=== PATIENT | male | born 1950 | race Caucasian/White ===

== ENCOUNTER 2018-01-23 09:15 | Inpatient (IN) | payer MEDICARE, OTHER ==
[~2018-01-23] VITALS: Ht 175.3 cm; Wt 120.3 kg
[~2018-01-23 09:15] MED LIST: ASPIRIN EC81 MG PO; CARDURA4 MG PO; CARVEDILOL25 MG PO; COREG12.5 MG PO; COREG6.25 MG PO; COUMADIN1 MG PO; COUMADIN10 MG PO; COUMADIN2 MG PO; COUMADIN7.5 MG PO; DIGITEK250 MCG PO; DIGOXIN PO; DIOVAN PO; DRISDOL50000 UNIT PO; GLIPIZIDE XL10 MG PO; GLUCOPHAGE1000 MG PO; JANUMET 50-1,01 EACH PO; JANUVIA100 MG PO; JANUVIA50 MG PO; KLOR-CON M2020 MEQ PO; LANOXIN125 MCG PO; LANTUS100 UNITS/ SUB-Q; LASIX80 MG PO; LIPITOR10 MG PO; METOLAZONE2.5 MG PO; METOPROLOL SUCC25 MG PO; NORVASC5 MG PO; REVLIMID10 MG PO; TOPROL XL100 MG PO; TRADJENTA5 MG PO; VITAMIN D250000 UNIT IM; VITAMIN D250000 UNIT PO; WARFARIN SODIUM10 MG PO; ZESTRIL40 MG PO; ZYLOPRIM100 MG PO
--- NOTE | 2018-01-23 12:30 | NUR ---
PT RECEIVED FROM ED. PT 1PA TRANSFER TO BED. PT WITH DECUB ULCERS TO BILATERAL FFET AND LEGS, PICTURES IN CHART. PT ON ROOM AIR, LUNG SOUNDS CLEAR, DENIES SOB. PT ON ADA DIET, BLOOD GLUCOSE 159, ASSISTED WITH ORDERING LUNCH. IV FLUIDS INFUSING NS AT 125 ML/HR. PT BOWEL TONES ACTIVE, DENIES NAUSEA. PT WITH STAGE 2 DECUBITUS ON SACRUM, PICTURE IN CHART. ADMISSION INTAKE COMPLETED. PT DENIES OTHER NEEDS AT THIS TIME.
[2018-01-23] MEDS ORDERED: ULORIC80 MG PO (13:47)
[2018-01-23] MEDS ORDERED: DILT-XR120 MG PO (13:48)
[2018-01-23] MEDS ORDERED: GLIPIZIDE10 MG PO (13:48)
--- NOTE | 2018-01-23 14:22 | NUR ---
Medications reconciled using pharmacy records, recent patient interview
--- NOTE | 2018-01-23 14:36 | NUR ---
CHECKED IN ON PT SEVERAL TIMES-ASLEEP EACH TIME. DID NOT WANT TO DISTURB. I WILL FOLLOW UP LATER.
--- NOTE | 2018-01-23 15:14 | NUR ---
THIS MAIL OPENER OFFERED PATIENT A SHOWER OR BEDBATH, PATIENT REFUSED. CALL LIGHT INR EACH
--- NOTE | 2018-01-23 16:20 | NUR ---
PT RESTING IN BED. PT ON ROOM AIR, LUNG SOUNDS CLEAR. URINE OUTPUT AND COLOR IMPROVING. PT DENIES NAUSEA, BOWEL TONES ACTIVE. IV FLUIDS CONTINUE TO INFUSE AT 125 ML/HR. NO ACUTE CHANGES. PT DENIES OTHER NEEDS AT THIS TIME.
--- NOTE | 2018-01-23 17:58 | NUR ---
PT ADMITTED THIS AFTERNOON FOR CONCEPCION/DEHYDRATION. PT ON ROOM AIR, LUNG SOUNDS CLEAR. PT ON ADA DIET, ACCUCHECKS, TOLERATING WELL. PT WITH WOUNDS TO BLE, PAINFUL TO TOUCH AND AMBULATE, WOUND CARE CONSULTED AND WILL ROUND ON PT TOMORROW. PT UP WITH 1PA WITH CANE, RECOMMEND BSC. PT VOIDING IN URINAL, QS, COLOR IMPROVING. IV FLUIDS INFUSING NS AT 125 ML/HR.
--- NOTE | 2018-01-23 18:15 | NUR ---
PATIENT WATCHING TV IN BED. VITALS AND I/OS CHARTED. WARM BLANKET GIVENCALL LIGHT IN REACH. NO OTHER NEEDS.
--- NOTE | 2018-01-23 20:46 | NUR ---
COOP WITH ASSESSMENT, BOTH FEET ELEVATED, SCANT AMOUNTS OF SEROSANGUINEOUS DRAINAGE
--- NOTE | 2018-01-23 21:12 | EKG ---
[facility] [address] [facility] [place] [address] Signed Atrial fibrillation with rapid ventricular response Left axis deviation Left ventricular hypertrophy with QRS widening Abnormal ECG When compared with ECG of 22-NOV-2016 10:08, QRS duration has increased Inverted T waves have replaced nonspecific T wave abnormality in Lateral leads Confirmed by DELMAR HAND MD ([id number]) on 01/23/2018 9:11:48 PM Electronically Signed By: DELMAR HAND MD 01/23/182111 PATIENT NAME: ZACH SMART Electrocardiogram DATE OF : 50 PHYSICIAN: DELMAR HAND MD REPORT #: [id number] REPORT IS CONFIDENTIAL AND NOT TO BE RELEASED WITHOUT AUTHORIZATION
--- NOTE | 2018-01-24 00:34 | NUR ---
PER PT REQUEST I GOT HIM A WARM BLANKET.
--- NOTE | 2018-01-24 03:25 | NUR ---
DR HAND NOTIFIED OF PT HAVING A RUN OF FAST VTACH, NEW ORDERS TO CHANGE 0600 AM LABS TO NOW AND ADD MG LEVEL, PT ASYMPTOMATIC.
--- NOTE | 2018-01-24 03:47 | NUR ---
VITALS DONE AND CHARTED. BEDSIDE TABLE AND CALL LIGHT WITHIN REACH.PT NEEDS NOTHING ELSE AT THIS TIME .
--- NOTE | 2018-01-24 05:16 | NUR ---
PT CONTINUES ON OBSERVATION STATUS. IVF INSUSING W/O PROBLEMS. TELE#5 INPLACE, HAD A RUN OF FAST V TACH, DR ESPITIA NOTIFIED, LABS DRAWN. CALLED WITH RESULTS. PT HAS ALLEVYN DRESSING IN BUTTOCKS. OPEN AREAS IN FEET WITH SCANT AMOUNT OF SEROUS DRAINAGE. CONTINUES TO VOID LIGHT TAMI COLORED URINE. CBG 135, NO COVERAGE NEEDED. NO C/O PAIN , NO REQUESTS
--- NOTE | 2018-01-24 05:49 | NUR ---
DR ESPITIA NOTIFIED OF PTS LAB RESULTS , K 3.2, NEW ORDERS FOR 1X DOSE OF PO POTASSIUM 20MeQ.
--- NOTE | 2018-01-24 06:02 | NUR ---
VITALS AND I&OS DONE AND CHARTED. GARBAGES EMPTIED. FRESH WATER GIVEN. PT NEEDS NOTHING ELSE AT THIS TIME. BEDSIDE TABLE AND CALL LIGHT WITHIN REACH.
--- NOTE | 2018-01-24 07:20 | NUR ---
HANDOFF REPORT RECEIVED FROM STEPHANIE HOLLIDAY. SALESPERSON PIANOS AND ORGANS IN ROOM, CHECKING BLOOD GLUCOSE.
--- NOTE | 2018-01-24 07:28 | NUR ---
PT JUST WAKING UP. DISCUSSED A SHOWER BEFORE WOUND CLINIC ARRIVES. PT STATED MAYBE AFTER BREAKFAST. NO COMPLAINTS AT THIS TIME.
--- NOTE | 2018-01-24 07:59 | NUR ---
PT TRAY DELIVERED, PT WILL TOLERATE ASSESSMENT AFTER BREAKFAST. GIVEN ORANGE JUICE PER REQUEST. NO COMPLAINTS AT THIS TIME.
--- NOTE | 2018-01-24 08:30 | NUR ---
PT RESTING IN BED. PT RATING PAIN 2-3/10 TO FEET. PT ON ROOM AIR, LUNG SOUNDS CLEAR, DENIES SOB. PT TOLERATING ADA DIET, BLOD GLUCOSE THIS AM WAS 96, SS INSULIN HELD, 5 UNITS LEVEMIR GIVEN. PT TACHYCARDIC, TELE #5, AFIB, HR IN 120'S, CARDIZEM AND COREG GIVEN. PT WITH SCABS TO BLE, PULSES FAINT, FEET WARM, CAP REFILL 2 SECONDS. IV FLUIDS INFUSING AT 125 ML/HR, PT SALINE LOCKED FOR SHOWER. MEDICATIONS ADMINISTERED BY JOINERY SETTER OUT WITH SUPERVISION BY THIS RN. PT DENIES OTHER NEEDS AT THIS TIME.
--- NOTE | 2018-01-24 09:31 | NUR ---
PT SHOWERED WITH HELP OF CHRISTINE GALVAN AND STUDENT NURSE. ULCERS ON PT FEET BLED WHILE AMBULATING TO THE SHOWER. CHUCKS PLACED ON BED UNDER FEET. PT TOLERATED SHOWER WELL. PT LAYING IN BED WITH NO COMPLAINTS AT THIS TIME. WAITING FOR WOUND NURSE TO ARRIVE.
--- NOTE | 2018-01-24 10:34 | NUR ---
PRN TYLENOL REQUESTED AND ADMINISTERED. PT LAYING IN BED WATCHING TV. NO COMPLAINTS AT THIS TIME. NEW ICE WATER AT BEDSIDE, CALL LIGHT WITHIN REACH.
--- NOTE | 2018-01-24 10:43 | NUR ---
PT RESTING IN BED [facility] STUDENT IN CHARTING AFTER CARING FOR PT. HE MENTIONED THAT HE IS FEELING BETTER, NOT READY FOR DC YET THOUGH HE CONFESSED. PT IS EVER CHEERFUL, SPOKE JOKINGLY OF HIS EXTENDED FAMILY. EXTENDED A BLESSING TO PT, HE THANKED ME AND GAVE THE BLESSING TO ME IN RETURN. WILL FOLLOW NEEDED
--- NOTE | 2018-01-24 11:40 | NUR ---
PT RESTING IN BED. PT BLOOD GLUCOSE 152, GIVEN 1 UNIT SS INSULIN, LUNCH AT BEDSIDE. OIL HOUSE ATTENDANT ADMINISTED MEDICATION WITH SUPERVISION BY THIS RN. PT DENIES OTHER NEEDS AT THIS TIME.
--- NOTE | 2018-01-24 11:45 | NUR ---
PT TOLERATED CBG AND INSULIN. LAYING IN BED EATING LUNCH. NO COMPLAINTS AT THIS TIME. PAIN IMPROVED TO 3 AFTER PRN TYLENOL.
--- NOTE | 2018-01-24 12:41 | NUR ---
PUMP ALARMING. NEW BAG NS HUNG AND STARTED. PT LAYING IN BED WATCHING TV. CALL LIGHT WITHIN REACH. NO COMPLAINTS AT THIS TIME.
--- NOTE | 2018-01-24 14:30 | NUR ---
PT RESTING IN BED. PT DENIES PAIN AT THIS TIME. PT ON ROOM AIR, LUNG SOUNDS CLEAR. PT WIHT POOR APPETITE FOR LUNCH, DID NOT EAT SANDWICH, DRANK SODA, DENIES NAUSEA, BOWEL TONES ACTIVE. PT CONTINUES TO HAVE WOUNDS TO BLE, CLEANSED WITH WOUND CLEANSER, OPEN TO AIR. IV FLUIDS INFUSING AT 125 ML/HR. URINE COLOR IMPROVED, YELLOW, QS. PT DENIES OTHER NEEDS AT THIS TIME.
--- NOTE | 2018-01-24 15:15 | NUR ---
VIRTUALIZATION CONSULTANT TO BEDSIDE TO EVALUATE BLE WOUNDS. PLAN TO APPLY UNNA BOOTS. TELEMETRY DISCONTINUED PER DR. HAND. PT UPDATED ON PLAN OF CARE. PT DENIES OTHER NEEDS AT THIS TIME.
--- NOTE | 2018-01-24 15:55 | NUR ---
ORDER RECEIVED FOR WOUND CONSULT ON THIS PATIENT. PATIENT IS NOTED TO HAVE MULTIPLE RED, SCABBED WOUNDS TO FEET CIRCUMFERENTIALLY AROUND THE TOES AND THE WOUNDS EXTEND TOWARD THE PATIENT'S HEELS AND ARE ON THE TOPS OF HIS FEET, BILATERALLY. SIMILAR WOUNDS ARE ALSO NOTED TO THE PATIENT'S RIGHT ANTERIOR AMAYA. PATIENT REPORTS HE HAD CROC TYPE SHOES ON HIS FEET AND THEN HIS FEET SWELLED AND WHEN HE REMOVED THE SHOES, THE SKIN FROM HIS FEET WAS DISRUPTED. THE PATIENT DOES NOT RECALL WHAT THE WOUNDS ON THE ANTERIOR RIGHT AMAYA COULD HAVE BEEN CAUSED FROM. THE WOUNDS ARE NOTED TO BE DRAINING A MODERATE AMOUNT OF SEROUS WELL BRIGHT RED BLOOD. THE ELECTRONIC MEDICAL RECORD IS REVIEWED AND THERE IS NO INDICATION OF ARTERIAL DISEASE. AN LUCI INDEX IS FOUND TO BE 1.0 ON THE LEFT AND 1.4 ON THE RIGHT, WHICH ARE BOTH WITHIN THE NORMAL RANGE. UNNA BOOTS ARE APPLIED TO FEET AND LOWER EXTREMETIES, BILATERALLY, WHICH ARE FOLLOWED BY CAST PADDING AND LASTLY WRAPPED WITH COBAN. COLE KING, IS PRESENT AND ASSISTS WITH HOLDING FOR THE DRESSING CHANGE. PATIENT TOLERATES THE DRESSING CHANGE WELL. PLAN OF CARE TO INCLUDE DRESSING CHANGES TWICE WEEKLY ON TUESDAYS AND FRIDAYS AND WILL CONTINUE ON AN OUTPATIENT OR HOME HEALTH BASIS ONCE THE PATIENT IS DISCHARGED FROM THE HOSPITAL. PATIENT IS UPDATED WITH REGARD TO THE PLAN OF CARE AND HE VERBALIZES UNDERSTANDING.
--- NOTE | 2018-01-24 16:38 | NUR ---
DID PATIENT'S BLOOD SUGAR CHECK. PATIENT IS LAYING IN BED WATCHING TV.
--- NOTE | 2018-01-24 17:11 | NUR ---
PT ON ROOM AIR, LUNG SOUNDS CLEAR. PT WITH POOR APPETITE, ADA DIET, BOWEL TONES ACTIVE. IV FLUIDS INFUSING NS AT 125ML/HR. HERBARIUM CURATOR EVALUATED BLE, APPLIED UNNA BOOTS. PT HAD TYLENOL X1 FOR FOOT PAIN. PT VOIDING QS, URINE YELLOW IN COLOR.
--- NOTE | 2018-01-24 20:08 | NUR ---
RECEIVED BEDSIDE REPORT FROM JUANITO BROWN. PT APPEARS TO BE SLEEPING AT THIS TIME. NS INFUSING AT 50ML/HR. CALL LIGHT WITHIN REACH. RESPIRATIONS WNL.
--- NOTE | 2018-01-24 22:00 | NUR ---
ASSESSMENT COMPLETED. REPORTS NO PAIN. UNNA BOOT IN PLACE. C/D/I. FOWL ODOR COMING FROM WOUNDS UNDER DRESSING. 1+ EDEMA BLE. HEART SOUNDS IRREGULAR. LUNGS ARE CLEAR AND DIM. PT REPORTS NUMBNESS AND TINGLING IN BLE. BLOOD SUGAR 131. CALL LIGHT WITHIN REACH. REPORTS NO OTHER NEEDS AT THIS TIME. NS @ 50ML/HR. LE ELEVATED.
--- NOTE | 2018-01-24 23:00 | NUR ---
PT APPEARS TO BE SLEEPING. CALL LIGHT WITHIN REACH. RESPIRATIONS EQUAL AND NONLABORED.
--- NOTE | 2018-01-25 00:10 | NUR ---
PT APPEARS TO BE SLEEPING, RESPIRATIONS EQUAL AND NONLABORED. CALL LIGHT WITHIN REACH.
--- NOTE | 2018-01-25 02:34 | NUR ---
PT APPEARS TO BE SLEEING. RESPIRAITONS EQUAL AND NONLABORED. CALL LIGHT WITHIN REACH. LE ELEVATED.
--- NOTE | 2018-01-25 05:09 | NUR ---
PT SLEPT THROUGHOUT THE NIGHT. NO PAIN. NC @ 50ML/HR. UNNA BOOT BLE. COME IN FOR CHANGES AFTER DC. JOHN WITH DR MIRELES TODAY AFTER DC. LUNGS CLEAR. BOWEL TONES ACTIVE. ELEVATE BLE.
--- NOTE | 2018-01-25 07:00 | NUR ---
HANDOFF REPORT RECEIVED FROM DENTAL ASSISTANT INSTRUCTOR RN. PT SLEEPING, LEFT UNDISTURBED.
--- NOTE | 2018-01-25 07:00 | NUR ---
HANDOFF REPORT RECEIVED FROM MANAGER TRANSFER RN. PT REQUESTED NOT TO HAVE BEDSIDE REPORT.
--- NOTE | 2018-01-25 09:00 | NUR ---
PT RESTING IN BED. VSS. PT ON ROOM AIR, LUNG SOUNDS CLEAR, DENIES SOB. BOWEL TONES ACTIVE, TOLERATING ADA DIET, SMALL APPETITE, 5 UNITS LEVEMIR GIVEN, SS INSULIN HELD FOR BLOOD GLUCOSE 90. PT WITH UNNA BOOTS TO BLE, SMALL AMOUNT OF SHADOWING PRESENT ON RIGHT CALF AND LEFT HEEL, CAP REFILL 2 SECONDS, TOES WARM TO THE TOUCH. PT REQUESTING ASSISTANCE TO BATHROOM, HAD LOOSE BM WHILE AMBULATING TO BATHROOM, PERICARE PERFORMED, GOWN CHANGED. ALLEVYN TO SACRUM CHANGED, STAGE 2 DECUBITUS UNCHANGED. TP ASSISTED BACK TOBED. SMALL AMOUNT OF STOOL ON COBAND OF UNNA BOOT DRESSING, COBAND CHANGED. PT DENIES OTHER NEEDS AT THIS TIME.
--- NOTE | 2018-01-25 11:44 | NUR ---
PATIENT WATCHING TV, CALL LIGHT IN REACH, ASKED FOR DOOR TO BE CLOSED, NO OTHER NEEDS
--- NOTE | 2018-01-25 12:30 | NUR ---
PT RESTING IN BED. PER PHYSICAL THERAPY, PT NOT WILLING TO PARTICIPATE IN THERAPY. DISCUSSED WITH PT, PT STATES HE DOES NOT FEEL LIKE HE NEEDS PHYSICAL THERAPY AND THAT HE BELIEVES HE WEAKNESS IS DUE TO SOMETHING ELSE, PT UNABLE TO STATE WHAT HE THINKS IS THE ISSUE. PT STATES HE IS MOBILE AT HOME, ABLE TO WALK TO HIS LAND LORDS AND WALK INDEPENDENTLY IN HIS APARTMENT. PT EDUCATED ON ACUTE ILLNESS AND HOW PHYSICAL THERAPY WILL CONTRIBUTE TO IMPROVING STRENGTH. FAMILY AT BEDSIDE. PT DENIES OTHER NEEDS AT THIS TIME.
--- NOTE | 2018-01-25 13:26 | NUR ---
PATIENT IN BED,, EYES CLOSED. VITALS AND I/OS COMPLETED AND CHARTED BY THIS COOK APPRENTICE AND CHRISTINE GALVAN. CALL [facility] IN REACH. NO OTHER NEEDS
--- NOTE | 2018-01-25 15:30 | NUR ---
PT RESTIGN IN BED. PT ON ROOM AIR, LUNG SOUNDS CLEAR. BOWEL TONES ACTIVE, DENIES NAUSEA, POOR APPETITE. PT THE UNNA BOOTS IN PLACE, CAP REFILL 2 SECONDS TO TOES. IV FLUIDS CONTINUE TO INFUSE AT 85 ML/HR. PT DENIES OTHER NEED AT THIS TIME. EDUCATION PROVIDED ON BENEFITS OF PHYSICAL THERAPY AND PLAN OF CARE AT THIS TIME, PT STATES UNDERSTANDING.
--- NOTE | 2018-01-25 17:30 | NUR ---
PT BLOOD GLUCOSE 101, SS INSULIN HELD. PT WITH POOR APPETITE. PT DENIES OTHER NEEDS AT THIS TIME.
--- NOTE | 2018-01-25 20:26 | NUR ---
pt less anxious, up to brp, voided, back to bed, requires 1pa. ivf infusing w/o problems, no c/o abd pain or n/v at this time. Coop with assessment
--- NOTE | 2018-01-25 22:47 | NUR ---
PATIENT RESTING IN BED, BREATHING IS EVEN AND UNLABORED. DENIES NEEDS AT THIS TIME. CALL LIGHT WITHIN REACH.
--- NOTE | 2018-01-26 00:06 | NUR ---
CHARGE NURSE NOTE: RESTING, EYES CLOSED, ULNA BOOT INPLACE BILAT LEGS
--- NOTE | 2018-01-26 00:45 | NUR ---
PATIENT RESTING COMFORTABLY, BREATHING IS EVEN AND UNLABORED. CALL LIGHT WITHIN REACH.
--- NOTE | 2018-01-26 02:30 | NUR ---
PATIENT RESTING IN BED, BREATHING IS EVEN AND UNLABORED. CALL LIGHT WTIHIN REACH.
--- NOTE | 2018-01-26 07:55 | NUR ---
PATIENT IN BED, FINISHED WITH BREAKFAST, DENIES ANY NEEDS AT THIS TIME. CALL LIGHT IN REACH
--- NOTE | 2018-01-26 08:18 | NUR ---
DR. LOZADA ROUNDED ON PATIENT. CBG 87. DISCUSSED DRINKING GLUCERNA TO INCREASE WOUND HEALING. PATIENT STATES " I WOULD LOVE TO TRY IT" FULL BODY ASSESMENT DONE. NO COMPLAINTS OF PAIN. STATES " I RESTED WELL LAST NIGHT". VS STABLE.
--- NOTE | 2018-01-26 08:30 | NUR ---
PT RESTING IN BED WATCHING TV. ATE ALL OF BREAKFAST, KATIE WELL. GLUCERNA AT BEDSIDE, PT EDUCATED ON DRINKING TO HELP WOUND HEALING OF LOWER EXTREMITIES. BILATERAL DRESSINGS HAVE SCATTERED SPOTS OF DARK RED DRAINAGE, FOUL ODOR NOTED. PT ALERT AND ORIENTED, FLAT AFFECT. SATTING 98% ON RA. DENIES PAIN OR OTHER CONCERNS AT THIS TIME. CALL LIGHT WITHIN REACH.
--- NOTE | 2018-01-26 09:19 | NUR ---
PATIENT SET UP FOR AM CARE, FACE AND HANDS WASHED, TEETH BRUSHED. VITALS AND I/OS CHARTED. CALL LIGHT IN REACH NO OTHER NEEDS
--- NOTE | 2018-01-26 11:15 | NUR ---
PT SITTING UP IN BED WATCHING TV. DENIES PAIN OR OTHER CONCERNS AT THIS TIME. CALL LIGHT WITHIN REACH. IV INFUSING WNL.
--- NOTE | 2018-01-26 13:39 | NUR ---
VITALS AND I/OS CHARTED. PATIENT DENIES ANY NEEDS. CALL LIGHT IN REACH
--- NOTE | 2018-01-26 14:00 | NUR ---
PT RESTING IN BED, EYES CLOSED, RESP EVEN AND UNLABORED.
--- NOTE | 2018-01-26 16:45 | NUR ---
PT SITTING UP IN BED WATCHING TV. WORKED WITH PYoanaT. THIS AM, AMB HALLWAY WELL WITH WALKER. DENIES PAIN OR OTHER CONCERNS AT THIS TIME. CALL LIGHT WITHIN REACH.
--- NOTE | 2018-01-26 17:15 | NUR ---
PATIENT AT EDGE OF BED, EATING DINNER. THIS MANAGER PUBLISHING AND MANAGER PUBLISHINGYeny LAZARO FOR I/OS. CALL LIGHT IN REACH. NO OTHER NEEDS AT THIS TIME
--- NOTE | 2018-01-26 17:32 | NUR ---
PATIENT IN BED, DINNERON TABLE IN FRONT. VITALS AND I/OS CHARTED BY THIS MECHANICAL ENGINEERING TECHNICIAN AND MECHANICAL ENGINEERING TECHNICIANYeny LAZARO. CALL LIGHT IN REACH, FRESH ICE WTAER GIVEN
--- NOTE | 2018-01-26 17:56 | NUR ---
BILATERAL LOWER EXTREMITY DRESSINGS REMOVED PER DR. MIRELES. MODERATE AMOUNT OF FOUL SMELLING NECROTIC TISSUE NOTED AT THE SITE OF EACH WOUND. WOUND BEDS ARE BRIGHT PINK, NO UNDERMINING OR TUNNELING NOTED, MILD TO MODERATE AMOUNT OF BRIGHT RED OOZING FROM OPEN SITES. SCATTERED CIRCUMFRENTIAL WOUNDS TO BILATERAL FEET, HEELS AND CALVES. MODERATE AMOUNT OF BLACK TISSUE WAS REMOVED WITH LULY BOOTS DESPITE SOAKING WITH SALINE. DR. MIRELES ASSESSED WOUNDS AND RECIEVED ORDER TO REAPPLY DRESSINGS PER WOUND CARE ORDERS. PT KATIE DRESSING REMOVAL WELL. DENIED PAIN OR OTHER CONCERNS.
--- NOTE | 2018-01-26 19:00 | NUR ---
BEDSIDE REPORT RECEIVED FROM OFFGOING RN. PT LYING IN BED. DENIES NEEDS AT THIS TIME. CALL LIGHT WITHIN REACH.
--- NOTE | 2018-01-26 22:00 | NUR ---
DRESSINGS APPLIED TO BILATERAL LEGS AND FEET. UNNA'S BOOT, CAST PADDING, AND COBAN APPLIED. PT TOLERATED WELL. PT ASSESSMENT COMPLETE. PT REPORTING PAIN 3/10 TO BILATERAL LEGS, PRN TYLENOL ADMINISTERED. PT DENIES OTHER NEEDS AT THIS TIME. CALL LIGHT WITHIN REACH.
--- NOTE | 2018-01-27 00:15 | NUR ---
PT RESTING IN BED WITH EYES CLOSED. RESPIRATIONS EVEN AND UNLABORED. PT APPEARS TO BE SLEEPING. CALL LIGHT WITHIN REACH.
--- NOTE | 2018-01-27 03:00 | NUR ---
PT MADE NPO AT THIS TIME. PT ABLE TO DRINK APPROXIMATELY 1 AND 1/4 BOTTLES OF BOWEL PREP.
--- NOTE | 2018-01-27 03:06 | NUR ---
PT UTILIZES CALL LIGHT, REQUESTING JUICE TO DRINK. PT ASSESSMENT COMPLETE. CMS INTACT TO BLE'S, DRESSINGS INTACT. PT REQUESTS SOCKS BE PLACED OVER TOES TO KEEP WARM. PT DENIES PAIN AT THIS TIME. HR REMAINS IRREGULAR. PT DENIES OTHER NEEDS. CALL LIGHT WITHIN REACH.
--- NOTE | 2018-01-27 05:28 | NUR ---
PT SLEPT WELL THROUGHOUT THE NIGHT. PAIN X 1 TO BLE'S, TYLENOL ADMINISTERED.HR IRREGULAR. DRESSINGS TO BLE'S: UNNA BOOT, CAST PADDING, AND KOBAN PER ORDER. TO BE CHANGED SATURDAY AND SATURDAY. IV SL. 1PA AND FWW, PT WORKING WITH PT. DECREASED APPETITE, ENCOURAGE GLUCERNA. BS CHECKS. UO GOOD, PT USES URINAL APPROPRIATELY.
--- NOTE | 2018-01-27 09:02 | NUR ---
CALLED TO NOTIFY OF CONSULT ORDER. HE SAID HE OR WOULD BE IN TO SEE PT FIRST THING IN THE MORNING. SAID OK TO BE SEEN TOMORROW.
--- NOTE | 2018-01-27 09:06 | NUR ---
THIS CNA2 TOOK pt TO THE BR, PICKED UP ROOM, CHANGED LINENS, SET UP FOR BRK, TOOK BS. pt IS RESTING IN BED WITH CALL LIGHT IN REACH.
--- NOTE | 2018-01-27 09:38 | NUR ---
VITALS AND I AND O DONE
--- NOTE | 2018-01-27 11:45 | NUR ---
ADMITTED TO CCU FROM MED-SURG VIA BED WITH AFIB/RVR. IS RECIEVING A BOLUS OF NS 500 ML UPON ADMIT. IS AWAKE, ALERT, ORIENTED. DENIES PAIN, SHORTNESS OF BREATH OR LIGHTHEADNESS AT THIS TIME. SKIN IS WARM AND DRY.
--- NOTE | 2018-01-27 11:46 | NUR ---
REPORT GIVEN TO DENILSON BROWN IN CCU FOR TRANSFER FOR HEART RATE MONITORING.
--- NOTE | 2018-01-27 12:00 | NUR ---
PO LOPRESSOR 50 MG GIVEN ORDERED.
--- NOTE | 2018-01-27 12:30 | NUR ---
SLIDING SCALE INSULIN GIVEN. 3 UNITS. SITTING UP IN BED READY TO EAT.
--- NOTE | 2018-01-27 12:55 | NUR ---
DR. MIRELES AWARE OF POST BOLUS ORTHROS. WILL REPEAT BOLUS OF 500 ML NS. MAG MARS BERTRAND.
--- NOTE | 2018-01-27 13:20 | NUR ---
IV SITE TO RIGHT AC NON-FUNCTIONAL. THIS DC'D, 22 GA STARTED TO LEFT HAND. BOLUS THEN CONTINUED.
--- NOTE | 2018-01-27 14:00 | NUR ---
500 ML BOLUS COMPLETE.
--- NOTE | 2018-01-27 15:55 | NUR ---
DR. DUNAWAY HERE TO APPLY LULY JOSEPH BILAT.
--- NOTE | 2018-01-27 16:45 | NUR ---
LULY BOOTS APPLIED. PT TOLERATED WELL.
--- NOTE | 2018-01-27 17:11 | NUR ---
RESTFUL. AWAITING DINNER. IS W/O C/O.
--- NOTE | 2018-01-27 18:53 | NUR ---
NO CHANGES, IVF PATENT AT 100 ML/HR. HOB IS ELEVATED.
--- NOTE | 2018-01-27 19:05 | NUR ---
TDOAY, WHEN ON BIPAP CVP HAS BEEN 14-18, OFF BIPAP CVP-8-12. REMAINS ON LEVOPHED AT 10 MCG/MIN.
--- NOTE | 2018-01-27 21:30 | NUR ---
PATIENT RESTING IN BED, BREATHING IS EVEN AND UNLABORED, HEART RATE WELL CONTROLLED. NO PAIN AT THIS TIME, DENIES NEEDS. ASSESSMENT DONE, MEDICATIONS GIVEN. CALL LIGHT WITHIN REACH.
--- NOTE | 2018-01-27 22:57 | NUR ---
RESTING COMFORTABLY IN BED, BREATHING IS EVEN AND UNLABORED. HEART RATE WELL CONTROLLED, HR OF 87. CALL LIGHT WITHIN REACH.
--- NOTE | 2018-01-28 00:15 | NUR ---
PATIENT RESTING IN BED, BREATHING IS EVEN AND UNLABORED. DENIES NEEDS AT THIS TIME, NO PAIN. CALL LIGHT WITHIN REACH.
--- NOTE | 2018-01-28 02:00 | NUR ---
PATIENT RESTING IN BED, BREATHING IS EVEN AND UNLABORED. CALL LIGHT WITHIN REACH.
--- NOTE | 2018-01-28 04:07 | NUR ---
PATIENT RESTING IN BED, BREATHING IS EVEN AND UNLABORED. NO NEEDS AT THIS TIME. CALL LIGHT WITHIN REACH.
--- NOTE | 2018-01-28 06:01 | NUR ---
UPDATED DR. MIRELES REGARDING PATIENT'S ORTHOSTATIC VITALS RESULTS AND PATIENT'S HEART RATE SUSTAINING ABOVE 100. NO NEW ORDERS AT THIS TIME.
--- NOTE | 2018-01-28 07:30 | NUR ---
bedside report recieved. patient is restful at this time.
--- NOTE | 2018-01-28 08:00 | NUR ---
ASSESSMENT DONE. DENIES PAIN. IS W/O C/O SHORTNESS OF BREATH. TALKED WITH PATIENT ABOUT PLAN OF CARE FOR DAY, IS UNDERSTANDING.
--- NOTE | 2018-01-28 10:12 | NUR ---
FAMILY MEMBERS ARE AT BEDSIDE.
--- NOTE | 2018-01-28 11:30 | NUR ---
WHEN PATIENT RECIEVING SPONGE BATH, HR TO 140'S. DENIES DIZZINESS OR SHORTNESS OF BREATH.
--- NOTE | 2018-01-28 11:31 | NUR ---
PATIENT BATHED FRONT SIDE, SHAVED FACE, AND DID ORAL CARE. THIS COLD TYPE ARTIST ASSISTED WITH BATHING BACK SIDE AND SETTING UP PATIENT FOR BED BATH.
--- NOTE | 2018-01-28 11:32 | NUR ---
THIS MOTION PICTURES CARTOONIST ASSISTED PATIENT WITH SETTING UP BED BATH FOR PATIENT AND ASSISTING PATIENT WITH THE BED BATH. PATIENT IS NOW SITTING UP IN BED VISITING WITH FAMILY MEMBERS. SEE ADL NOTES. FRESH ICE WATER. CALL LIGHT WITHIN REACH. NO OTHER NEEDS AT THIS TIME.
--- NOTE | 2018-01-28 12:48 | NUR ---
EATING LUNCH, VISITING WITH FAMILY. DENIES PROBLEMS.
--- NOTE | 2018-01-28 14:17 | NUR ---
ASLEEP. HR 95-110. NO DISTRESS NOTED.
--- NOTE | 2018-01-28 16:00 | NUR ---
ASSESSMENT DONE. DENIES PROBLEMS. ROUTINE MEDS GIVEN. ORTHROS DONE. DENIES DIZZINESS. TRANSFERRED TO CHAIR. DR. MIRELES AWARE OF ORTHROS.
--- NOTE | 2018-01-28 18:30 | NUR ---
TOOK DINNER WELL. DENIES PROBLEMS. BACK TO BED WITH ASSIST. IS VERY WEAK AND UNSTABLE ON FEET.
--- NOTE | 2018-01-28 20:00 | NUR ---
PATIENT RESTING IN BED COMFORTABLY, BREATHING IS EVEN AND UNLABORED. DENIES NEEDS AT THIS TIME. ASSESSMENT DONE. CALL LIGHT WITHIN REACH.
--- NOTE | 2018-01-29 00:30 | NUR ---
PATIENT RESTING IN BED, BREATHING IS EVEN AND UNLABORED. DENIES NEEDS AT THIS TIME. CALL LIGHT WITHIN REACH.
--- NOTE | 2018-01-29 02:02 | NUR ---
PATIENT RESTING IN BED COMFORTABLY, BREATHING IS EVEN AND UNLABORED. DENIES NEEDS AT THIS TIME. CALL LIGHT WITHIN REACH.
--- NOTE | 2018-01-29 04:00 | NUR ---
PATIENT RESTING IN BED, BREATHING IS EVEN AND UNLABORED, NO NEEDS AT THIS TIME. CALL LIGHT WITHIN REACH.
--- NOTE | 2018-01-29 06:22 | NUR ---
PATIENT TO BEDSIDE FOR STANDING WEIGHT, TOLERATING WELL, ABLE TO STAND FOR ORTHOSTATIC VITALS. PATIENT DENIES LIGHT HEADEDNESS OR DIZZINESS. NOW RESTING IN BED AGAIN, BREATHING IS EVEN AND UNLABORED. HEART RATE REMAINS WELL CONTROLLED. PATIENT DENIES NEEDS AT THIS TIME. CALL LIGHT WITHIN REACH.
--- NOTE | 2018-01-29 08:19 | NUR ---
PT A,A,O, SITTING WITH HOB ELEVATED, EATING BREAKFAST, NO C/O AT THIS TIME. ASSESSMENT COMPLETED. UNNA BOOTS IN PLACE ON BILAT LOWER EXTREMITIES, DRIED DRAINAGE NOTED. DR. GAO WILL BE IN TO CHANGE DRESSINGS.
--- NOTE | 2018-01-29 09:25 | NUR ---
PT UP TO HUE CHAIR WITH ONE PERSON ASSIST. PT KATIE WELL.
--- NOTE | 2018-01-29 10:57 | NUR ---
PT SLEEPING IN HUE CHAIR, AWAKENS TO VOICE. DR. MIRELES IN TO ASSESS PT.
--- NOTE | 2018-01-29 11:34 | NUR ---
CARDIAZEM 15MG GIVEN PO PER DR. BOSS.
--- NOTE | 2018-01-29 12:53 | NUR ---
ASSESSMENT COMPLETED. PT RESTING IN HUE CHAIR WATCHING TV. NO C/O AT THIS TIME. PT ATE 100% OF LUNCH.
--- NOTE | 2018-01-29 13:57 | NUR ---
PT WITTING IN CHAIR, SHARING A LITTLE SARCASM WHICH HELPED ME KNOW HE WAS FEELING BETTER. PT IS ALERT AND ORIENTED AND SEEMS TO ALWAYS BE UPBEAT, NO MATTER HOW HE FEELS. HE IS HOPING TO BE MOVED TO M/S LATER TODAY. LOTS OF FAMILY CAME TO VISIT-I EXTENDED A BLESSING AND HE RETURNED IT. WILL FOLLOW NEEDED
--- NOTE | 2018-01-29 14:11 | NUR ---
PT REMAINS IN HUE CHAIR, REFUSED SHOWER/SPONGE BATH. WARM CLOTH GIVEN TO WASH HANDS AND FACE. PT BRUSHED HIS TEETH, REFUSED SHOWER CAP ALSO. CARDIAZEM 75 MG GIVEN PO PER DR. ORDER. HR 80, BP 102/68.
--- NOTE | 2018-01-29 14:44 | NUR ---
P.T. HERE AND AMBULATED PT IN HALLWAY WITH WALKER. PT KATIE FAIR, HR INCREASED TO 110-115 BPM.
--- NOTE | 2018-01-29 15:23 | NUR ---
WARM BLANKET GIVEN PER PT REQUEST.
--- NOTE | 2018-01-29 15:52 | NUR ---
ASSESSMENT COMPLETED, PT RESTING IN BED WITH HOB ELEVATED. COUMADIN 7.5 MG GIVEN PO.
--- NOTE | 2018-01-29 17:17 | NUR ---
PT ATE 100% OF DINNER, NO C/O. TELE #[address]
--- NOTE | 2018-01-29 17:28 | NUR ---
REPORT GIVEN TO AALIYAH BROWN ON MED/SURG.
--- NOTE | 2018-01-29 17:36 | NUR ---
PATIENT RECEIVED FROM CCU ROOM 130, YOAN BROWN TO GIVE VERBAL REPORT.
--- NOTE | 2018-01-29 17:53 | NUR ---
PATIENT'S VITAL SIGNS ON TRANSFER FROM CCU, PATIENT ASSESSMENT COMPLETED, PATIENT WITH EVEN AND UNLABORED BREATHING AT REST, REPORTED EXERTIONAL DYSPNEA. LUNG SOUNDS CLEAR AND DIMINISHED AT BASES, PATIENT ON TELE #3, PATIENT WITH AFIB ON MONITOR WITH RATE BETWEEN 60-90BPM AT TIME OF TRANSFER, ALL OTHER VITAL SIGNS WNL. PATIENT IS ALERT AND ORIENTED. PATIENT IS A TWO PERSON ASSIST WITH FWW. PATIENT WITH BILATERAL WEAKNESS IN LOWER EXTREMITIES AND WEARS LULY BOOTS BILATERALY FOR VASCULAR ULCERS, PATIENT WITH WEAK AND THREADY PALPABLE PEDAL PULSES. PATIENT SKIN COLOR PALE, RASH NOTED TO BILATERAL ELBOWS AND DOCUMENTED IN ASSESSMENT, WARM AND GOOD CAPILLARY REFILL. PATIENT ATE 100% OF DINNER PER REPORTING NURSE AND HAD A NORMAL BOWEL MOVEMENT TODAY, NORMAL URINE OUTPUT. PATIENT WITH NO FURTHER COMPLAINTS AT THIS TIME.
--- NOTE | 2018-01-29 18:14 | NUR ---
PATIENT RESTING IN BED, CALL LIGHT IN REACH. PATIENT REQUESTED DOOR TO BE KEPT CLOSED. NO OTHER NEEDS AT THIS TIME.
--- NOTE | 2018-01-29 20:50 | NUR ---
ROUNDED CHARGE. PATIENT IS RESTING IN BED WATCHING TV. PATIENT DENIES ANY COMMENTS, QUESTIONS, OR CONCERNS. PATIENTS RIGHT LEG ELEVATED ON A PILLOW PER REQUEST. NO FURTHER NEEDS NOTED. CALL LIGHT IN REACH.
--- NOTE | 2018-01-29 20:58 | NUR ---
COOP WITH ASSESSMENT, REPOSITIONED IN BED, USING URINAL. VOIDING QS DARK YELLOW URINE. NO C/O PAIN. R LEG ELEVATED WITH PILLOWS. ULNA BOOT ON BILAT,
--- NOTE | 2018-01-29 21:49 | NUR ---
RECHECKED VITALS PER RN ASHLIE REQUEST. LET HER KNOW WHAT THEY WERE.
--- NOTE | 2018-01-30 02:35 | NUR ---
AWAKENS EASILY, NO C/O PAIN OR DISCOMOFRT, NO C/O CP, TELE#[address]
--- NOTE | 2018-01-30 04:47 | NUR ---
PT SITTING EDGE OF BED, DID NOT TOLERATE STANDING UP FOR 3 MINUTES FOR ORTHOSTATICS BP. BACK TOBED, NO C/O PAIN,
--- NOTE | 2018-01-30 05:45 | NUR ---
PT CURRENTLY AWAKE, NO REQUESTS, NO C/O PAIN. PT HAS BRUISING ON BODY ARMS, AND R FLANK, NOT OPEN, UNKNOWN CAUSE, ALLEVYN DRESSING TO BUTTOCKS, PT LAYS IN BED, REPOSITIONES SELF, ENCOURAGED TO STAY OFF HIS BACK, SEMI RECEPTIVE. PT UNABLE TO TOLERATE STANDING UP 3 MINUTES FOR ORTHOSTATICS BP. HAS BEEN VOIDING DARK YELLOW URINE QS. TELE#[address], IRRIGULAR HEART RATHE AND RHYTHM, DENIES C.O SOB OR CHEST PAIN. ULNA BOOTS TO BOTH LEGS IN PLACE, CAP REFILL WNL. OLD DRAINAGE IN DRESSING, R LEG ELEVATED
--- NOTE | 2018-01-30 07:27 | NUR ---
DID PATIENT'S BLOOD SUGAR CHECK. SAID HE WOULD DO A BED BATH TODAY AND ALSO A SHAMPOO CAP. NOW IS WAITING FOR HIS BREAKFAST.
--- NOTE | 2018-01-30 08:10 | NUR ---
PT SITTING UP IN RECLINER EATING BREAKFAST, NO DISTRESS NOTED ASSESSMENT COMPLETE. HE HAS NO OTHER REQUESTS AT THIS TIME.
--- NOTE | 2018-01-30 09:33 | NUR ---
ORTHOSTATIC V/S TAKEN WITH V/S CART, READINGS CONCERNING, REPORTED TO DR.REDDY BOUDREAUX V/S ORTHOS TAKEN AND CHARTED, LESS CONCERNING, NOTIFED MD FIGUEROA FOR PT TO PARTICIPATE WITH PHYSICAL THERAPY.
--- NOTE | 2018-01-30 11:20 | NUR ---
REPORT RECEIVED FROM JN, ASSUMING PATIENT CARE. PATIENT SITTING IN THE CHAIR, APPEARS IN NO DISTRESS. ANSWERED QUESTION APPROPRIATELY. LUNCH TRAY SET FOR. PATIENT EATING LUNCH.
--- NOTE | 2018-01-30 11:51 | NUR ---
REPORT GIVEN TO BETHANY BROWN AT THIS TIME.
--- NOTE | 2018-01-30 12:33 | NUR ---
AFTERNOON MEDS ADMINISTERED. PATIENT SITTING ON THE CHAIR VISITING WITH FAMILY. NO OTHER REQUEST MADE.
--- NOTE | 2018-01-30 13:38 | NUR ---
PATIENT ASSISTED TO BATHROOM TO VOID, THEN BACK TO BED. RESTING IN BED AT THIS TIME, DENIES PAIN. NO OTHER REQUEST.
--- NOTE | 2018-01-30 13:50 | NUR ---
ASKED PATIENT ABOUT TAKING A BED BATH AND HE TOLD ME HE WANTS TO SLEEP.
--- NOTE | 2018-01-30 15:15 | NUR ---
PATIENT RESTING IN BED, DENIES ANY PAIN. NO DISTRESS NOTED. AFTERNOON MED ADMINISTERED. CALL LIGHT IN REACH.
--- NOTE | 2018-01-30 16:19 | NUR ---
PATIENT RESTING IN BED DENIES PAIN AT THIS TIME. NO ACUTE DISTRESS NOTED. AFTERNOON MED ADMINISTERED. URINAL EMPTIED AND I/O CHARTED CALL LIGHT IN REACH.
--- NOTE | 2018-01-30 17:39 | NUR ---
PATIENT UP TO BEDSIDE TO EAT DINNER. REPORTS NO PAIN. CALL LIGHT IN REACH
--- NOTE | 2018-01-30 18:37 | NUR ---
PATIENT HAD DONE WELL TODAY. HAD PHYSICAL THERAPY THIS AM & TOLERATED WELL. UNNA DRESSING ON BILATERAL LEGS DUE TO ULCER. DR GAO TO CHANGE DRESSING IN THE AM (7AM). IV SITE PATENT. PATIENT REFUSED SHOWER TODAY. U/O Q/S. MILD PAIN IN THE LOWER EXTREMITIES. LUNGS CLEAR BUT DIM IN THE BASES.
--- NOTE | 2018-01-30 19:15 | NUR ---
RECEIVED REPORT FROM DAY SHIFT RN. PT APPEARS TO BE SLEEPING AT THIS TIME AND DOES NOT WANT TO BE DISTURBED. PT IS SL. LEGS ELEVATED. CALL LIGHT WITHIN REACH. RESPIRAITONS ARE EQUAL AND NONLABORED.
--- NOTE | 2018-01-30 21:29 | NUR ---
VITALS AND I&OS DONE AND CHARTED. FRESH WATER GIVEN. BEDSIDE TABLE AND CALL LIGHT WITHIN REACH.
--- NOTE | 2018-01-30 22:05 | NUR ---
ASSESSMENT COMPLETED. LUNGS ARE DIM IN THE BASES. HEART IRREGULAR. EDEMA NOTED BILAST LE. UNNA BOOT IN PLACE ON LE. SMALL AMOUNT DRIED DRAINAGE ON RIGHT TOE. PT REPORTS SMALL AMOUNT OF NUMBNESS AND TINGLING IN BILAT LE FROM NEUROPATHY. PULSES ARE +1 X4 EXTREMITIES. CAP REFILL IS <3 X4 EXTREMITIES. SL LEFT FOREARM. FLUSHES WELL. REPORTS NO PAIN AT THIS TIME. CALL LIGHT WITHIN REACH. NO OTHER NEEDS
--- NOTE | 2018-01-30 23:43 | NUR ---
PT APPEARS TO BE SLEEPING. RESPIRATION ARE EQUAL AND NONLABORED. CALL LIGHT WTIHIN REACH.
--- NOTE | 2018-01-31 02:30 | NUR ---
PT IB BED AWAKE WATCHING TV. RESPIRATIONS EQUAL AND NONLABORED. URINAL EMPTIED. CALL LIGHT WITHIN REACH. REPORTS NO NEEDS AT THIS TIME.
--- NOTE | 2018-01-31 05:29 | NUR ---
VITALS AND I&OS DONE AND CHARTED. DAILY WEIGHT DONE AND CHARTED WELL. GARBAGES EMPTIED. BEDSIDE TABLE AND CALL LIGHT WITHIN REACH.
--- NOTE | 2018-01-31 07:38 | NUR ---
REPORT RECEIVED FROM FATIMAH BROWN. ALL QUESTIONS ANSWERED. WHITE BOARD UPDATED. WEIGHT THIS MORNING 265 WITH STANDING SCALE. ORTHOSTAT VS TAKEN BY LEARNING AND DEVELOPMENT DIRECTOR RN THIS MORNING WELL. FSBS 119. NO INSULIN COVERAGE NEEDED. DR GAO CHANGED FEET DRESSINGS THIS MORNING.
--- NOTE | 2018-01-31 07:49 | NUR ---
DR GAO WILL DO DRESSING CHANGE Q4 DAYS AND NEXT CHANGE WILL BE DONE IN HIS OFFICE.
--- NOTE | 2018-01-31 08:37 | NUR ---
PATIENT IN BED, STUDENT DOING MOST OF PATIENT'S NEEDS THIS AM. PATIENT REFUSED SHOWER, STATING " I'M GOING HOME TODAY, AND I CAN'T ANYWAY, BECAUSE OF MY FEET" THIS REGIONAL VICE PRESIDENT [employer] TOLD HIM THE FEET/ BOOTIES CAN BE COVEREDTO STAY DRY, PATIENT STILL REFUSED. CALL LIGHT IN REACH. STUDENT AND INSTRUCTOR IN ROOM.
--- NOTE | 2018-01-31 08:49 | NUR ---
THIS RN OFFERED TO GET PATIENT UP TO CHAIR THIS MORNING. PT REFUSED. WILL PLAN TO GET PATIENT UP TO CHAIR AT LUNCH.
--- NOTE | 2018-01-31 08:59 | NUR ---
VITALS OBTAINED PRIOR TO MED ADMINISTRATION, PATIENT RESTING SUOINE IN BED, WITH NO COMPLAINT OR REQUEST.
--- NOTE | 2018-01-31 09:19 | NUR ---
iv flushed with 10ml NS. some leaking noted, but dressing intact and flushes well with no pain.
--- NOTE | 2018-01-31 09:27 | NUR ---
Administered 0900 meds and flushed IV located in right FA. IV is patent, slightly leaky. Nurse bandaged with cling wrap and coban. No infection or infiltration noted at site. Patient resting supine with no complaint or requests.
--- NOTE | 2018-01-31 11:30 | NUR ---
PATIENT SITTING UP IN CHAIR, DR MIRELES LEAVING , STUDENT IN ROOM TAKING BLOODSUGAR. PATIENT IS A LITTLE DISCOURAGED HE WAS UNDER THE IMPRESSION HE WOULD DISCHARGE TODAY. 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 PATIENT WAS IN [place] DURING 05/13, AND SHARED THAT EXPERIENCE WELL. PATIENT EXPRESSED ONCE AGAIN HIS EAGERNESS TO "GO HOME!" CALL LIGHT IN REACH, LINENS CHANGED, NO OTHER NEEDS AT THIS TIME
--- NOTE | 2018-01-31 12:18 | NUR ---
Patient moved from bed to chair with walker assist at 1100, orthostatic vitals obtained at this time. Patient agreed to a shower today, notes reason for refusal is he thought he was being discharged today. Left patient sitting in chair, legs elevated, with no complaint or request.
--- NOTE | 2018-01-31 13:37 | NUR ---
PATIENT TOOK A BED BATH AFTER LUNCH. I WASHED HIS BACK HE DID THE REST. ALSO DID A SHAMPOO CAP. CHANGED HIS GOWN AND NEW UNDERWEAR. NOW IS RESTING IN BED.
--- NOTE | 2018-01-31 14:00 | NUR ---
PATIENT IS CURRENTLY UP WORKING WITH PT. REPORT GIVEN TO THIS RN BY STEPHANIE ROGERS. THIS RN WILL BE TAKING OVER THE PATIENT'S CARE FOR THE REMAINDER OF THE SHIFT.
[2018-01-31] MEDS ORDERED: METOPROLOL SUC200 MG PO (14:29)
[2018-01-31] MEDS ORDERED: LASIX80 MG PO (14:30)
[2018-01-31] MEDS ORDERED: DILTIAZEM ER300 MG PO (14:30)
--- NOTE | 2018-01-31 15:10 | NUR ---
PT IN BED FOLLOWING P.T. HIS NIECE IN VISITING. I STOPPED IN FOR A MINUTE, PT HAD MENTIONED THAT HE HAD SOME SERIOUS THEOLOGICAL ISSUES (DILEMAS) THAT HE WANTED TO DISCUSS. ONE BEING SUICIDE, AND IS IT A SIN. WE REALIZED WE MIGHT NEED MORE TIME. PLAN WAS TO TRY AGAIN. GOOD TIME, EXTENDED A BLESSING AND MADE PLANS TO DISCUSS AGAIN
--- NOTE | 2018-02-01 15:44 | PR ---
[facility] [address], [place] [address] Signed DATE OF STUDY: 01/27/2018 SUBJECTIVE: Patient seen in the critical care unit at [facility], resting comfortably in bed under no apparent distress. The patient states that the wounds began after he wore rubber-croc sandals approximately 2 weeks ago. The wound areas of the feet developed as blisters, which then lysed and left the cankers on both of his feet. Patient was alert and oriented. Vitals were stable. It should be noted that at this time that access to the electronic medical records was not possible due to password error and lack of being updated with the system. So I was unable to obtain medical information from the patient's chart and with 2 attempts, I have failed to complete the task with the IT department. PHYSICAL EXAMINATION: INTEGUMENT: Multiple superficial skin loss areas noted about the patient's bilateral foot structures in a moccasin type distribution. This involved the heels. The arch area in the lateral aspect of the midfoot and toes. This similar pattern was demonstrated in both areas created a mosaic patch area began superficial skin loss. These involved areas have a red beefy base. Mild clear drainage. Some hyperemia with mild inflammation around the periphery of this wound areas. Areas were nonraised, nonhyperkeratotic and nonplaque forming. This had the appearance of a contact dermatitis sequela. VASCULAR STATUS: Positive edema was noted in the patient's bilateral lower extremities. pulses were nonpalpable likely secondary to edema and chronic skin changes. Capillary refill time was less than 3 seconds to all digits. NEUROLOGICAL STATUS: The patient's sensory has decreased to light touch and mildly decreased to sharp instrumentation. MUSCULOSKELETAL: Range of motion and muscle masses within normal limits for the patient's overall health status and activity level. ASSESSMENT AND PLAN: 1. Contact dermatitis secondary to shoe gear. 2. Chronic venous hypertension with ulcer. 3. Changes in skin texture secondary to chronic stasis. Treatment care of the patient's condition was discussed. Treatment options were reviewed. Wounds were debrided, removing superficial crusting around the periphery of the wounds with mild eschar formations. The wound areas were cleaned with chlorhexidine solution, covering with the Xeroform bilateral multilayer wrapped consisting of Unna boot wrap, dry wrap, and a Coban layer were then applied. This bilateral compression dressing can be left in place for up to 7 days. It was anticipated that the patient will probably be admitted to the hospital for a period possibly extending beyond this; *Electronically Signed* 02/01/18 1544 AMANDA BERNARD DPM PATIENT NAME: ZACH SMART PROGRESS NOTE DATE OF : 50 PHYSICIAN: AMANDA BERNARD DPM RPT #: [id number] REPORT IS CONFIDENTIAL AND NOT TO BE RELEASED WITHOUT AUTHORIZATION [address] [address] Signed however, I will plan on following up with the patient on January 31. If the patient happens to be discharged prior to this event, he may follow up in my private office again on January 31. Amanda Bernard DPM /MODL /[id number] Copies: ~ *Electronically Signed* 02/01/18 1544 AMANDA BERNARD DPM PATIENT NAME: ZACH SMART PROGRESS NOTE DATE OF : 50 PHYSICIAN: AMANDA BERNARD DPM RPT #: [id number] REPORT IS CONFIDENTIAL AND NOT TO BE RELEASED WITHOUT AUTHORIZATION
[2018-02-11] MEDS ORDERED: FUROSEMIDE80 MG PO (08:37)
== END 2018-01-31 15:27 | disposition home or self-care (01) | DRG 683 ==
LOC: ED 09:15 → MS 09:16 → CCU 01-27 11:45 → MS 01-29 17:30 → CCU 01-29 17:30 → MS 01-31 15:27
PROVIDERS: ADMIT Internal Medicine
PROC: 2W1TX6Z Compression of Left Foot using Pressure Dressing (ICD-10-PCS; principal; 2018-01-27)
PROC: 2W1SX6Z Compression of Right Foot using Pressure Dressing (ICD-10-PCS; 2018-01-27)
DX: N17.9 Acute kidney failure, unspecified (principal); C90.01 Multiple myeloma in remission; I50.22 Chronic systolic (congestive) heart failure; I87.313 Chronic venous hypertension (idiopathic) with ulcer of bilateral lower extremity; L97.929 Non-pressure chronic ulcer of unspecified part of left lower leg with unspecified severity; L97.919 Non-pressure chronic ulcer of unspecified part of right lower leg with unspecified severity; I48.2 Chronic atrial fibrillation; E86.0 Dehydration; M62.81 Muscle weakness (generalized); I95.1 Orthostatic hypotension; E11.649 Type 2 diabetes mellitus with hypoglycemia without coma; E11.22 Type 2 diabetes mellitus with diabetic chronic kidney disease; N18.4 Chronic kidney disease, stage 4 (severe); I50.82 Biventricular heart failure; E79.0 Hyperuricemia without signs of inflammatory arthritis and tophaceous disease; L25.8 Unspecified contact dermatitis due to other agents; I34.0 Nonrheumatic mitral (valve) insufficiency; I51.7 Cardiomegaly; Z79.01 Long term (current) use of anticoagulants; Z79.4 Long term (current) use of insulin; Z79.899 Other long term (current) drug therapy
CPT/HCPCS: 36415; 71045; 80048; 80053; 80069; 83036; 83605; 83735; 83880; 85025; 85610; 87040; 93005; 93010; 93306; 96361; 96374; 97110; 97116; 97162; 97165; 97530; 99285; G0378; J3475; J3480; J7030; J7040; J7120

== ENCOUNTER 2018-12-10 11:23 | Inpatient (IN) | payer MEDICARE, OTHER ==
[~2018-12-10] VITALS: Ht 175.3 cm; Wt 145.9 kg
--- OUTSIDE RECORDS SUMMARY | ~2018-12-10 | XMS | Clinical Summary ---
Demographics + + + | Address | [address] | | | [place] [address] | + + + | Home Phone | | + + + | Preferred Language | Unknown | + + + | Marital Status | Single | + + + | Roman Catholic Affiliation | Unknown | + + + | Race | Unknown | + + + | Ethnic Group | Unknown | + + + Author + + + | Author | [facility] | + + + | Organization | [facility] [employer] [facility] | + + + | Address | Unknown | + + + | Phone | Unavailable | + + + Support + + +---------+ + | Name | Relationship | Address | Phone | + + +---------+ + | Rocky Smart | ECON | Unknown | | + + +---------+ + Care Team Providers + +------+ + | Care Review Rn Name | Role | Phone | + +------+ + | Maribel Mireles MD | PP | Unavailable | + +------+ + Allergies No Known Allergies Current Medications + + +--------+---------+------+------+-------+ | Prescription | Sig. | Disp. | Refills | Star | End | Statu | | | | | | t | Date | s | | | | | | Date | | | + + +--------+---------+------+------+-------+ | warfarin | Take 7.5 mg by mouth | | | | | Activ | | (COUMADIN) 7.5 MG | daily. | | | | | e | | tablet | | | | | | | + + +--------+---------+------+------+-------+ | linagliptin | Take 5 mg by mouth | | | | | Activ | | (TRADJENTA) 5 MG | daily. | | | | | e | | tablet | | | | | | | + + +--------+---------+------+------+-------+ | furosemide (LASIX) | Take 1 tablet by | 30 | 2 | / | | Activ | | 80 MG tablet | mouth daily. | tablet | | 5/20 | | e | | | | | | 17 | | | + + +--------+---------+------+------+-------+ | ferrous sulfate, | Take 65 mg of iron | | | | | Activ | | 65 FE, 324 (65 Fe) | by mouth 3 (three) | | | | | e | | MG EC tablet | times a week. | | | | | | + + +--------+---------+------+------+-------+ | cholecalciferol | Take 5,000 Units by | | | | | Activ | | 5000 units capsule | mouth daily. | | | | | e | + + +--------+---------+------+------+-------+ | febuxostat | Take 80 mg by mouth | 30 | 11 | 04/0 | | Activ | | (ULORIC) 80 MG | daily. | tablet | | /20 | | e | | tablet | | | | 18 | | | + + +--------+---------+------+------+-------+ | diltiazem | Take 120 mg by mouth | | | | | Activ | | (CARDIZEM CD) 120 MG | daily. | | | | | e | | 24 hr capsule | | | | | | | + + +--------+---------+------+------+-------+ | glipiZIDE | Take 1 tablet by | 30 | 11 | 10/2 | 10/2 | Activ | | (GLUCOTROL) 10 MG 24 | mouth 2 (two) times | tablet | | /20 | 4/20 | e | | hr tablet | daily. | | | 18 | 19 | | + + +--------+---------+------+------+-------+ | metoprolol | Take 1 tablet by | 120 | 3 | 10/2 | | Activ | | (TOPROL-XL) 100 MG | mouth every morning. | tablet | | 4/20 | | e | | 24 hr tablet | 100 mg in am and 50 | | | 18 | | | | | mg in pm | | | | | | + + +--------+---------+------+------+-------+ | losartan (COZAAR) | Take 1 tablet by | 90 | 3 | 11/2 | 04/ | Disco | | 50 MG | mouth daily. | tablet | | 0/20 | 0/20 | ntinu | | tabletIndications: | | | | 18 | 19 | ed | | CKD (chronic kidney | | | | | | | | disease) stage 3, | | | | | | | | GFR 30-59 ml/min | | | | | | | | ([facility]), Persistent | | | | | | | | proteinuria | | | | | | | + + +--------+---------+------+------+-------+ Active Problems + + + | Problem | Noted Date | + + + | Anemia | 07/18/2018 | + + + | Chronic systolic heart failure (HCC) | 06/25/2018 | + + + | Secondary hyperparathyroidism (HCC) | 04/07/2018 | + + + | Bilateral leg edema | 12/09/2017 | + + + | Vitamin D deficiency | 12/09/2017 | + + + | Electrolyte imbalance risk | 12/09/2017 | + + + | Type 2 diabetes mellitus with diabetic nephropathy, with | 10/07/2017 | | long-term current use of insulin (HCC) | | + + + | Hyperuricemia | 10/07/2017 | + + + | Persistent proteinuria | 10/07/2017 | + + + | Chronic atrial fibrillation (HCC) | 09/24/2016 | + + + | CKD (chronic kidney disease) stage 3, GFR 30-59 ml/min ([facility]) | 09/24/2016 | + + + | Benign hypertension | 09/24/2016 | + + + | Lymphedema of both lower extremities | 06/11/2016 | + + + | Venous insufficiency of both lower extremities | 06/11/2016 | + + + | Arterial insufficiency of lower extremity (HCC) | 06/11/2016 | + + + | Morbid obesity (HCC) | 06/11/2016 | + + + Resolved Problems + + + + | Problem | Noted | Resolved | | | Date | Date | + + + + | Chronic diastolic (congestive) heart failure | 03/13/20 | | | | 17 | 8 | + + + + | Open wound of right lower extremity | 06/11/20 | | | | 16 | 7 | + + + + | Open wound of left lower extremity | 06/11/20 | | | | 16 | 7 | + + + + Encounters +--------+---------+ + + + | Date | Type | Specialty | Care Team | Description | +--------+---------+ + + + | 12/10/ | Office | | Victorina Weaver, | Morbid obesity (HCC) | | 2019 | Visit | | MD | (Primary Dx); | | | | | | Chronic atrial | | | | | | fibrillation (HCC); | | | | | | CKD (chronic kidney | | | | | | disease) stage 3, | | | | | | GFR 30-59 ml/min | | | | | | (HCC); Benign | | | | | | hypertension; | | | | | | Bilateral leg edema; | | | | | | Chronic systolic | | | | | | heart failure (HCC) | +--------+---------+ + + + from Last 3 Months Family History + + +------+ + | Medical History | Relation | Name | Comments | + + +------+ + | Cancer | Father | | | + + +------+ + + +------+ + + | Relation | Name | Status | Comments | + +------+ + + | Father | | | | + +------+ + + | Mother | | | | + +------+ + + Social History + +-------+ +--------+------+ | Tobacco Use | Types | Packs/Day | Years | Date | | | | | Used | | + +-------+ +--------+------+ | Never Smoker | | | | | + +-------+ +--------+------+ + +---+---+---+ | Smokeless Tobacco: | | | | | Never Used | | | | + +---+---+---+ + + +---------+ + | Alcohol Use | Drinks/We | oz/Week | Comments | | | ek | | | + + +---------+ + | No | | | | + + +---------+ + + + + | Sex Assigned at | Date Recorded | | | | + + + | Not on file | | + + + Last Filed Vital Signs + + + + | Vital Sign | Reading | Time Taken | + + + + | Blood Pressure | 112/68 | 12/10/2018 10:50 AM PDT | + + + + | Pulse | 74 | 12/10/2018 10:50 AM PDT | + + + + | Temperature | 36.2 C (97.1 F) | 02/03/2018 2:59 PM PDT | + + + + | Respiratory Rate | 18 | 07/09/2016 2:15 PM PST | + + + + | Oxygen Saturation | 97% | 12/10/2018 10:50 AM PDT | + + + + | Inhaled Oxygen | - | - | | Concentration | | | + + + + | Weight | 147 kg (324 lb) | 12/10/2018 10:50 AM PDT | + + + + | Height | 175.3 cm (5' 9") | 12/10/2018 10:50 AM PDT | + + + + | Body Mass Index | 47.85 | 12/10/2018 10:50 AM PDT | + + + + Plan of Treatment +--------+---------+ + + + | Date | Type | Specialty | Care Team | Description | +--------+---------+ + + + | 05/06/ | Office | | Victorina Weaver, | | | 2019 | Visit | | MD Solomon Cowan | | | | | | [address], | | | | | | [place] [address] | | | | | | [phone] | | | | | | | | +--------+---------+ + + + + + + + + | Health Maintenance | Due Date | Last Done | Comments | + + + + + | Diabetic Eye Exam | | | | | | 1 | | | + + + + + | Diabetic Foot Exam | | | | | | 1 | | | + + + + + | Hemoglobin A1c | | | | | | 1 | | | + + + + + | Vaccine: | | | | | Dtap/Tdap/Td (1 - | 0 | | | | Tdap) | | | | + + + + + | Colon Cancer | | | | | Screening | 1 | | | | (Colonoscopy) | | | | + + + + + | Vaccine: Zoster (1 | | | | | of 2) | 1 | | | + + + + + | Vaccine: | | | | | Pneumococcal 65+ | 6 | | | | Low/Medium Risk (1 | | | | | of 2 - PCV13) | | | | + + + + + | Statin Therapy | | | | | (optimal intensity) | 7 | | | + + + + + | Vaccine: Influenza | | | | | (Season Ended) | 9 | | | + + + + + Results Not on filefrom Last 3 Months Insurance + +--------+ +------+-------+ + | Payer | Benefi | Subscriber | Type | Phone | Address | | | t Plan | ID | | | | | | / | | | | | | | Group | | | | | + +--------+ +------+-------+ + | MEDICARE | MEDICA | [id number] | | | [address] | | | RE | | | | [place] [phone] | | | IP-OP | | | | | + +--------+ +------+-------+ + + +--------+ +--------+ + + | Guarantor Name | [employer] | Relation to | Date | Phone | Billing Address | | | t Type | Patient | of | | | | | | | | | | + +--------+ +--------+ + + | MIGUEL SMART | Person | Self [birth year] Home: | [address] | | | al/Fam | | 1951 [address] | | | [address] | | | [phone] | [place] | | | | | | | [phone] | + +--------+ +--------+ + +
--- OUTSIDE RECORDS SUMMARY | ~2018-12-10 | XMS | Encounter Summary ---
Demographics + + + | Address | [address] | | | [place] [address] | + + + | Home Phone | | + + + | Preferred Language | Unknown | + + + | Marital Status | Single | + + + | Episcopalian Affiliation | Unknown | + + + | Race | Unknown | + + + | Ethnic Group | Unknown | + + + Author + + + | Author | [employer] | + + + | Organization | [facility] | + + + | Address | Unknown | + + + | Phone | Unavailable | + + + Support + + +---------+ + | Name | Relationship | Address | Phone | + + +---------+ + | Rocky Padilla | ECON | Unknown | | + + +---------+ + Care Team Providers + +------+ + | Care Branch Officer Name | Role | Phone | + +------+ + | Maribel Mireles MD | PCP | Unavailable | + +------+ + Encounter Details +--------+---------+ + + + | Date | Type | Department | Care Team | Description | +--------+---------+ + + + | 12/10/ | Office | [facility] | Victorina Wilkerson, | Morbid obesity (HCC) | | 2019 | Visit | Cardiology [place] | [address] | (Primary Dx); | | | | [address] | [address], | Chronic atrial | | | | [facility] [address] | [place] [address] | fibrillation (HCC); | | | | [place] [address] | [phone] | CKD (chronic kidney | | | | [phone] | | disease) stage 3, | | | | | | GFR 30-59 ml/min | | | | | | (HCC); Benign | | | | | | hypertension; | | | | | | Bilateral leg edema; | | | | | | Chronic systolic | | | | | | heart failure (HCC) | +--------+---------+ + + + Social History + +-------+ +--------+------+ [...] on file | | + + + as of this encounter Last Filed Vital Signs + + + + | Vital Sign | Reading | Time Taken | + + + + | Blood Pressure | 112/68 | 12/10/2018 10:50 AM PDT | + + + + | Pulse | 74 | 12/10/2018 10:50 AM PDT | + + + + | Temperature | - | - | + + + + | Respiratory Rate | - | - | + + + + | Oxygen [...] AM PDT | + + + + in this encounter Progress Notes Victorina Wilkerson MD - 12/10/2018 11:15 AM PDTFormatting of this note may be different fro m the original. Date of visit: 12/10/2018 Primary Care Physician: Maribel Mireles CHIEF COMPLAINT: No chief complaint on file. HISTORY OF PRESENT ILLNESS: Edward is 68 y.o. here for follow up visit. Has been experiencing increased shortness of breath, increased lower extremity edema starte d having bilateral infection not on any antibiotic. Currently on Furosemide 80 mg daily and off metolazone. Complex past medical history. Evaluated for significant lower extremity edema. Was hospitalized in January 2018 secondary to atrial fibrillation with rapid ventricular respo nse. Was discharged on an usual dose of metoprolol succinate 300 mg bid plus diltiazem 120 mg wh ich is usually not recommended in the view of cardiomyopathy. Patient however has been taking only 100 mg of metoprolol succinate in the morning and 50 a t night. Patient has history of multiple myeloma, chronic anemia, chronic kidney disease and atrial fibrillation that was diagnosed in 2000. Patient on initial encounter was 340 pounds. We were able to decrease his weight by diuresi s to 260 pounds. No recent falls since prior evaluation Past medical history, SH, FH, and medications were reviewed in the chart. Medications: Outpatient Encounter Prescriptions as of 12/10/2018 Medication Sig Dispense Refill cholecalciferol 5000 units capsule Take 5,000 Units by mouth daily. diltiazem (CARDIZEM CD) 120 MG 24 hr capsule Take 120 mg by mouth daily. febuxostat (ULORIC) 80 MG tablet Take 80 mg by mouth daily. 30 tablet 11 ferrous sulfate, 65 FE, 324 (65 Fe) MG EC tablet Take 65 mg of iron by mouth 3 (three) times a week. glipiZIDE (GLUCOTROL) 10 MG 24 hr tablet Take 1 tablet by mouth 2 (two) times daily. 30 tablet 11 linagliptin (TRADJENTA) 5 MG tablet Take 5 mg by mouth daily. metoprolol (TOPROL-XL) 100 MG 24 hr tablet Take 1 tablet by mouth every morning. 100 mg in am and 50 mg in pm (Patient taking differently: Take 300 mg by mouth every morning. 100 mg in am and 50 mg in pm) 120 tablet 3 warfarin (COUMADIN) 7.5 MG tablet Take 7.5 mg by mouth daily. [DISCONTINUED] losartan (COZAAR) 50 MG tablet Take 1 tablet by mouth daily. 90 tablet 3 furosemide (LASIX) 80 MG tablet Take 1 tablet by mouth daily. 30 tablet 2 No facility-administered encounter medications on file as of 12/10/2018. Allergies No Known Allergies REVIEW OF SYSTEMS: Constitutional: Increased weight. Positive for fatigue. HEENT: Negative for nosebleeds, ear discharge, nasal congestion or soar throat. Eyes: Negative for visual disturbance, redness, or secretion. Respiratory: Negative for cough, sputum production, hemoptysis, wheezing. Cardiovascular:As HPI. Increased shortness of breath. Gastrointestinal: Negative for nausea, vomiting, diarrhea, abdominal pain and blood in stoo l. Genitourinary: Negative for dysuria or hematuria. Musculoskeletal: limited mobility uses a cane to ambulate. Increased lower extremity edema Skin: Negative for rash. Bilateral lower extremity cellulitis. Neurological: Negative for dizziness. No numbness. No recent falls. No slurred speech. Hematological: No significant bruising. Psychiatric/Behavioral: No depression or anxiety. PHYSICAL EXAM Vital Signs: BP 112/68 (BP Location: Left upper arm, Patient Position: Sitting) | Pulse 74 | Ht 1.753 m (5' 9") | Wt 147 kg (324 lb) | SpO2 97% | BMI 47.85 kg/m GENERAL APPEARANCE: Alert, oriented, cooperative, no distress, appears stated age. HEENT: Extraocular movements were intact. No jaundice. Pupiles round and reactive. NECK: No JVD, lymphadenopathy. Carotid upstrokes normal. No carotid bruit heard. CARDIAC: Irregular irregular with variable S1S2. CHEST: Normal bilateral symmetrical chest excursion.ackles or wheezing. No evidence of dull ness. ABDOMEN: Soft.No tenderness or guarding. No palpable organs. Active bowel sounds. EXTREMITIES: positive for LE edema, with bilateral severe lower extremity cellulitis.. NEURO: Alert and oriented times three with no focal deficit. Cranial nerves are grossly no rmal. SKIN: LE skin discoloration. Psych: Normal affect and mood. DATA 12/04/2018 WBC 8.3, hemoglobin 12.8, platelets 214, sodium 139, potassium 4.4, 101, bicarb 25, BUN 39, creatinine 2.41, GFR 27. AST 12, ALT 10, alk phos 1 8. 04/28/2018 Sodium 143, potassium 4.3, chloride 107, bicarbonate 20, BUN 40, creatinine 1.61, GFR 43. AST 12, AST 10, alk phos 99. Lab Results Component Value Date/Time NA 140 07/29/2018 NA 139 07/21/2018 NA 139 04/14/2018 K 4.3 07/29/2018 K 4.8 07/21/2018 K 4.3 04/14/2018 CO2 24 07/29/2018 CO2 25 07/21/2018 CO2 21 04/14/2018 BUN 47 (A) 07/29/2018 BUN 34 (A) 07/21/2018 BUN 41 (A) 04/14/2018 CREATININE 1.94 (A) 07/29/2018 CREATININE 1.81 (A) 07/21/2018 CREATININE 1.89 (A) 04/14/2018 MG 2.1 07/15/2018 MG 2.0 04/04/2018 11:15 AM MG 1.8 01/30/2018 05:34 AM Lab Results Component Value Date/Time WBC 7.6 07/15/2018 WBC 10.3 04/04/2018 11:15 AM WBC 10.1 01/30/2018 05:34 AM HGB 12.1 (A) 07/15/2018 HGB 11.8 (A) 04/04/2018 11:15 AM HGB 11.5 (A) 01/30/2018 05:34 AM HCT 37 (A) 07/15/2018 HCT 36.3 (A) 04/04/2018 11:15 AM HCT 33.4 (A) 01/30/2018 05:34 AM MCV 89.7 07/15/2018 MCV 88.6 04/04/2018 11:15 AM MCV 83.9 01/30/2018 05:34 AM PLT 198 07/15/2018 PLT 239 04/04/2018 11:15 AM PLT 196 01/30/2018 05:34 AM Lab Results Component Value Date GLUF 101 (A) 07/29/2018 GLUF 163 (A) 07/21/2018 DATA 03/04/2017 Sodium 135, potassium 3.5, chloride 96, bicarbonate 24, glucose 247, BUN 63, creatinine 2.5 5, GFR 26, calcium 8.9. AST 9, AST 12, current facility as 72. Digoxin 0.47, WBC 4.1, hemoglobin 11.3, platelets 84 Previously from October 2016. Na 136, potassium 3.9, chloride 99, bicarbonate 24, creatinine 2.0, BUN 49. Glucose 262. T 10, ALT 14, alkaline phosphatase 107. WBC 7.5, hemoglobin 10.2, platelets 128. Ca 8.3. EC01/23/2018 From [facility] showed atrial fibrillation with rapid ventricular response, left bundle morphology. Last Echo: 10/08/2016: Mild LV impaired systolic function EF 45%, RV mildly enlarged with mild impaired systolic f unction. Mild MR, Mild TR, moderate PHTN, RVSP 56 mmHg. Mild . Last Stress test: Last Cath: Last US carotid: ASSESSMENT & PLAN 68 y.o. with complex past medical history. 1. Acute on chronic congestive heart failure due to volume overload. NYH class III HC. 2. Mild cardiomyopathy, likely tachycardia induced, however by risk factor patient likely h as coronary artery disease. Continues to have volume overload with NYH class III, stage C. 3. Chronic atrial fibrillation with fairly controlled ventricular response. Probably second ashley to multiple comorbidities. Anemia, renal failure, multiple myeloma and obesity. CHADSVAS c of 3 on Coumadin. 4. Morbid obesity, BMI > 40. 5. Bilateral lower extremity cellulitis. 6. Multiple tyloma. 7. Chronic kidney disease most recent Cr to 2.41. 8. Hypertension blood pressures controlled. 9. Chronic Lower extremity edema increased with bilateral weeping and cellulitis. Recommendation: Patient presented today with increased shortness of breath congestive heart failure, increa sed weight and bilateral lower extremity cellulitis secondary to severe lower extremity remington a. Because the case with Dr. Mireles and Dr. Abrams. Patient will be admitted for IV diuretic and antibiotic plus wound care. 1. Discharge advised to stop furosemide and change to torsemide. 2. Continue with metoprolol succinate. Atrial fibrillation was previously in digoxin [facility] even though it is not optimal, currently since his heart rate is controlled with diltiaze m and having difficulty controlling his heart rate in the past I will keep her on low-dose. 3. Continue to monitor kidney function. 4. Continue with anticoagulation. 5. Follow-up in 2-3 months or earlier if needed. *This report has been prepared using a voice recognition system. The report was reviewed fo r accuracy, however, sound-alike word errors, addition and/or deletions may occur. If there is any question about this report please contact me. Victorina Wilkerson MD, MPHin this encounter Plan of Treatment +--------+---------+ + + + | Date | Type | Specialty | Care Team | Description | +--------+---------+ + + + | 05/06/ | Office | Cardiology | Victorina Wilkerson, | | | 2019 | Visit | | MD Solomon Cowan | | | | | | Dr [address], | | | | | | [place] [address] | | | | | | [phone] | | | | | | | | +--------+---------+ + + + as of this encounter Visit Diagnoses + + | Diagnosis | + + | Morbid obesity (HCC) - Primary | + + | Morbid obesity | + + | Chronic atrial fibrillation (HCC) | + + | Atrial fibrillation | + + | CKD (chronic kidney disease) stage 3, GFR 30-59 ml/min (HCC) | + + | Chronic kidney disease, Stage III (moderate) | + + | Benign hypertension | + + | Essential hypertension, benign | + + | Bilateral leg edema | + + | Edema | + + | Chronic systolic heart failure (HCC) | + + | Chronic systolic heart failure | + +
[~2018-12-10 11:23] MED LIST changes: +COZAAR25 MG PO; +DILT-XR120 MG PO; +DILTIAZEM 24HR120 M1 PO; +DILTIAZEM ER300 MG PO; +FERROUS SULFAT325 MG PO; +FUROSEMIDE80 MG PO; +GLIPIZIDE10 MG PO; +KLOR-CON 1010 MEQ PO; +METOPROLOL SUC200 MG PO; +METOPROLOL TAR100 MG PO; +ULORIC80 MG PO; +VITAMIN D5000 UNIT PO
[2018-12-10] MEDS ORDERED: LOSARTAN POTASS50 MG PO (13:50)
[2018-12-10] MEDS ORDERED: CARTIA XT300 MG PO (13:51)
[2018-12-10] MEDS ORDERED: METOPROLOL SUC200 MG PO (15:07)
[2018-12-10] MEDS ORDERED: COUMADIN10 MG PO (15:21)
== END 2018-12-12 10:45 | disposition home or self-care (01) | DRG 291 ==
LOC: CCU 11:23
PROVIDERS: ADMIT Internal Medicine
DX: I13.0 Hypertensive heart and chronic kidney disease with heart failure and stage 1 through stage 4 chronic kidney disease, or unspecified chronic kidney disease (principal); I50.23 Acute on chronic systolic (congestive) heart failure; N17.9 Acute kidney failure, unspecified; L03.116 Cellulitis of left lower limb; L03.115 Cellulitis of right lower limb; Z68.42 Body mass index [BMI] 45.0-49.9, adult; I50.82 Biventricular heart failure; N18.3 Chronic kidney disease, stage 3 (moderate); E11.22 Type 2 diabetes mellitus with diabetic chronic kidney disease; I48.2 Chronic atrial fibrillation; E79.0 Hyperuricemia without signs of inflammatory arthritis and tophaceous disease; D63.8 Anemia in other chronic diseases classified elsewhere; I87.2 Venous insufficiency (chronic) (peripheral); E66.01 Morbid (severe) obesity due to excess calories; B96.89 Other specified bacterial agents as the cause of diseases classified elsewhere; Z86.2 Personal history of diseases of the blood and blood-forming organs and certain disorders involving the immune mechanism; Z79.01 Long term (current) use of anticoagulants; Z79.84 Long term (current) use of oral hypoglycemic drugs; Z79.899 Other long term (current) drug therapy
CPT/HCPCS: 36415; 71045; 80048; 80053; 83036; 83735; 83880; 84100; 84550; 85025; 85610; 85651; 93306; J0696; J1815; J3370

== ENCOUNTER 2019-02-24 14:37 | Emergency (ER) | payer MEDICARE, OTHER ==
[~2019-02-24] VITALS: Ht 175.3 cm; Wt 151.5 kg
[~2019-02-24 14:37] MED LIST changes: +CARTIA XT300 MG PO; +HIGH POTENCY I134 MG PO; +LOSARTAN POTASS50 MG PO; +TORSEMIDE20 MG PO
--- OUTSIDE RECORDS SUMMARY | 2019-02-24 14:40 | XMS ---
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 Care History Medical/Surgical 12/11/2018 [facility] - Patient is currently established with [facility]. If patient is seen in the ED during business hours. Please contact [facility] at [facility]. Care Recommendation: This patient has had 5 or more Emergency Department visits in the last 12 months.\T\nbsp; Patient requires education on the scope and purpose of the ED as an acute care provider not a Primary Care Provider and should not be utilized for chronic conditions.\T\nbsp; These are guidelines and the provider should exercise clinical judgment when providing care. E.D. VISIT COUNT (12 MO.) 1 MARTITA Valverde TOTAL 1 NOTE: Visits indicate total known visits. 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 - Venous insufficiency (chronic) (peripheral) - Biventricular heart failure - Cellulitis of right lower limb - Personal history of diseases of the blood and blood-forming organs and certain disorders involving the immune mechanism - FPC (current) use of oral hypoglycemic drugs - Anemia in other chronic diseases classified elsewhere - Body mass index (BMI) 45.0-49.9, adult - FPC (current) use of oral hypoglycemic drugs - Hypertensive heart and chronic kidney disease with heart failure and stage 1 through stage 4 chronic kidney disease, or unspecified chronic kidney disease - Type 2 diabetes mellitus with diabetic chronic kidney disease - Morbid (severe) obesity due to excess calories - Chronic kidney disease, stage 3 (moderate) - Other medical terminologist (current) drug therapy - Cellulitis of right lower limb - Acute kidney failure, unspecified - Cellulitis of left lower limb - Morbid (severe) obesity due to excess calories - Chronic kidney disease, stage 3 (moderate) - Hypertensive heart and chronic kidney disease with heart failure and stage 1 through stage 4 chronic kidney disease, or unspecified chronic kidney disease - FPC (current) use of anticoagulants - Chronic atrial fibrillation - Biventricular heart failure - Cellulitis of left lower limb - Hyperuricemia without signs of inflammatory arthritis and tophaceous disease - Other specified bacterial agents as the cause of diseases classified elsewhere - Personal history of diseases of the blood and blood-forming organs and certain disorders involving the immune mechanism - Hyperuricemia without signs of inflammatory arthritis and tophaceous disease - Acute kidney failure, unspecified - Other snf (current) drug therapy - Anemia in other chronic diseases classified elsewhere - Venous insufficiency (chronic) (peripheral) - Acute on chronic systolic (congestive) heart failure [email or web address]
--- NOTE | 2019-02-25 07:53 | EKG ---
[facility] [address] [facility] [place] [address] Signed Atrial fibrillation with rapid ventricular response Left axis deviation Left bundle branch block Abnormal ECG When compared with ECG of 23-JAN-2018 09:23, Left bundle branch block is now present Confirmed by DELMAR HAND MD ([id number]) on 02/25/2019 7:53:41 AM Electronically Signed By: DELMAR HAND MD 02/25/19 0753 PATIENT NAME: ZACH SMART Electrocardiogram DATE OF : 50 PHYSICIAN: DELMAR HAND MD REPORT #: [id number] REPORT IS CONFIDENTIAL AND NOT TO BE RELEASED WITHOUT AUTHORIZATION
== END 2019-02-24 19:00 | disposition home or self-care (01) ==
LOC: ED 14:37
DX: I48.91 Unspecified atrial fibrillation (principal); R06.00 Dyspnea, unspecified; I10 Essential (primary) hypertension; E11.9 Type 2 diabetes mellitus without complications; Z79.84 Long term (current) use of oral hypoglycemic drugs; Z79.899 Other long term (current) drug therapy
CPT/HCPCS: 71045; 80053; 81001; 83735; 83880; 84484; 85025; 85610; 93005; 93010; 96374; 99285-25